=== PATIENT | male | born 1985 | race Asian ===

== ENCOUNTER 2019-01-12 15:39 | Emergency (ER) | payer OTHER ==
[~2019-01-12] VITALS: Ht 180.3 cm; Wt 79.5 kg
[2019-01-12 16:06] VITALS: BP 121/82
[2019-01-12] MEDS ORDERED: BENZOCAINE/MENTHOL LOZENGE PO ONE (16:30)
== END 2019-01-12 16:31 | disposition home or self-care (01) ==
LOC: EMS 15:44
DX: J02.8 Acute pharyngitis due to other specified organisms (principal); B97.89 Other viral agents as the cause of diseases classified elsewhere; F17.210 Nicotine dependence, cigarettes, uncomplicated
CPT/HCPCS: 99406